=== PATIENT | male | born 1975 | race Caucasian/White ===

== ENCOUNTER 2023-06-14 19:29 | Emergency (ER) | payer BC ==
[2023-06-14] MEDS ORDERED: Lidocaine 1% (PF) 30 ML VIAL ONE (20:41)
[2023-06-14] MEDS ORDERED: Bupivacaine PF 0.5% 30 ML VIAL ONE (21:19)
[2023-06-14] MEDS ORDERED: Bacitracin 1 PK ONE (21:19)
[2023-06-14] MEDS ORDERED: Boostrix 0.5 ML (Tdap) VIAL (>/=7 yrs of age) ONE (21:20)
[2023-06-14] MEDS ORDERED: Clindamycin 150 MG CAP ONE (22:43)
== END 2023-06-14 23:10 | disposition home or self-care (01) ==
LOC: MADERS 19:29
DX: S61.213A Laceration without foreign body of left middle finger without damage to nail, initial encounter (principal); S61.215A Laceration without foreign body of left ring finger without damage to nail, initial encounter; I10 Essential (primary) hypertension; E78.00 Pure hypercholesterolemia, unspecified; W26.0XXA Contact with knife, initial encounter; Y93.89 Activity, other specified; Z23 Encounter for immunization; Z79.899 Other long term (current) drug therapy
CPT/HCPCS: 12002; 90471; 90715; J2001; S0020